=== PATIENT | male | born 1970 | race Caucasian/White ===

== ENCOUNTER 2018-11-04 12:58 | Inpatient (IN) | payer BC ==
[~2018-11-04] VITALS: Ht 182.9 cm; Wt 173.4 kg
[~2018-11-04 12:58] MED LIST: Z.0.ZESTRIL10 MG PO
--- NOTE | 2018-11-04 14:17 | Diagnostic Imaging Report ---
EXAMINATION: CXR 2 VIEW - HOPD INDICATION: Chest tightness, chest pain COMPARISON: None FINDINGS: LINES/TUBES:None LUNGS:The lungs are well-inflated. No focal consolidation or pulmonary edema. PLEURA:No pleural effusion or pneumothorax. MEDIASTINUM:The cardiomediastinal silhouette appears normal in size and shape. BONES/SOFT TISSUES:No acute osseous injury. ABDOMEN:No free air under the diaphragm. IMPRESSION: No focal pneumonia or pulmonary edema. Signed by: Merry Smith MD on 11/04/2018 2:14 PM
[2018-11-04] MEDS ORDERED: ASPIRIN 81 MG CHEW TAB PO ONE (14:45)
[2018-11-04] MEDS ORDERED: ASPIRIN 325 MG TAB PO ONE (14:45)
[2018-11-04] MEDS ORDERED: ONDANSETRON HCL INJ 2MG/ML 2ML 2 MG/ML VIAL IV STA (14:45)
[2018-11-04] MEDS ORDERED: ASPIRIN 325 MG TAB ONE (14:51)
--- OUTSIDE RECORDS SUMMARY | 2018-11-04 15:07 | XMS REPORT ---
Author Author [facility] Address Unknown Phone Unavailable Care Team Providers Care Hide Selector Name Role Phone MONICA PAL Unavailable Unavailable Problems This patient has no known problems. Allergies, Adverse Reactions, Alerts This patient has no known allergies or adverse reactions. Medications This patient has no known medications. Results Test Description Test Time Test Comments Text Results Atomic Results Result Comments CXR 2 VIEW - [facility] 2018-11-04 14:12:00 [facility] [address] [place] [address] Patient Name: LEIGHANN PERDUE MR #: [id number] : 1970 Age/Sex: 48/M Req #: [id number] Adm Physician: Ordered by: MONICA PAL MD Report #: [id number] Location: [facility] Room/Bed: Procedure: [id number] HOPD/CXR 2 VIEW - HOPD Exam Date: 11/04/18 Exam Time: 1405 REPORT STATUS: Signed EXAMINATION: CXR 2 VIEW - HOPD INDICATION: Chest tightness, chest pain COMPARISON: None FINDINGS: LINES/TUBES:None LUNGS:The lungs are well-inflated. No focal consolidation or pulmonary edema. PLEURA:No pleural effusion or pneumothorax. MEDIASTINUM:The cardiomediastinal silhouette appears normal in size and shape. BONES/SOFT TISSUES:No acute osseous injury. ABDOMEN:No free air under the diaphragm. IMPRESSION: No focal pneumonia or pulmonary edema. Signed by: Maicol Smith MD on 11/04/2018 2:14 PM Dictated By: MAICOL SMITH MD 141 Transcribed By: JANN on 11/04/181413 COPY TO: MONICA PAL MD
[2018-11-04 17:09] VITALS: BP 147/103
[2018-11-04 17:15] VITALS: BP 147/103
--- NOTE | 2018-11-04 17:15 | NUR ---
Pt received from ER via stretcher. Alert and oriented x4, on telemetry sinus tachy. Oriented to staff and surroundings. Encouraged to press call evans if help needed. Pt verbalized understanding of teaching. Will monitor
--- NOTE | 2018-11-04 19:00 | NUR ---
Got report from previous nurse. Call light within reach. Patient in bed.
[2018-11-04 19:03] LABS: CREATINE KINASE MB 1.3 ng/mL (0-5.0)
[2018-11-04 20:00] VITALS: BP 165/98
--- NOTE | 2018-11-04 20:35 | NUR ---
Called and talked to Dr. Coelho because patient is having pain and wants Tylenol. Dr. Coelho approved of Tylenol 650 mg.
[2018-11-04] MEDS ORDERED: ACETAMINOPHEN 325 MG TAB PO PRN (20:45)
--- NOTE | 2018-11-04 22:35 | NUR ---
Jorge cardiac markers for the patient and brought it to lab. orthopaedic technologist called saying no orders were in for cardiac markers so to place orders in. Went to check the orders and orders were there but the construction or leak gang laborer did not see the order so had to put in new orders.
--- NOTE | 2018-11-04 22:48 | NUR ---
Cardiology Consult Dictation# [id number]
[2018-11-04 23:02] LABS: CREATINE KINASE MB 2.2 ng/mL (0-5.0)
[2018-11-05] VITALS (9 sets, daily range): BP systolic 118–134; BP diastolic 58–92
--- NOTE | 2018-11-05 01:07 | Consultation ---
DATE OF CONSULTATION: 11/04/2018 Cardiology Consultation REQUESTING PHYSICIAN: Chris Coelho MD. REASON FOR CONSULTATION: Chest pain. HISTORY OF PRESENT ILLNESS: This is a 48-year-old man with history of hypertension, who presents with complaints of diarrhea, vomiting, and chest pain. The patient reports that he had been in his usual state of health until 3 days ago when he began to have diarrhea and vomiting. He was unable to keep food or water down. Starting yesterday, he developed chest pain, which he describes as squeezing, 6/10 in severity. This would last 2 to 3 minutes at a time and occur every few hours. He reports this pain is worse when lying down, but did not radiate and it was not associated with shortness of breath. He denies any edema, orthopnea, PND, or palpitations. He denies any recent travel or surgeries. REVIEW OF SYSTEMS: Negative except as per HPI. PAST MEDICAL HISTORY: 1. Hypertension. 2. Obesity. PAST SURGICAL HISTORY: Right knee surgery. ALLERGIES: PLEASE SEE EMR. MEDICATIONS: Please see medication list. SOCIAL HISTORY: Denies tobacco, alcohol, or illicit drugs. FAMILY HISTORY: Pertinent for sister with unspecified heart disease. PHYSICAL EXAMINATION: VITAL SIGNS: Temperature 99 degrees, pulse 111, respiratory rate 20, blood pressure 147/103, and oxygen saturation 94% on room air. GENERAL: Morbidly obese man, well developed, well nourished, in no acute distress. Awake and alert. HEENT: Normocephalic and atraumatic. Pupils equal. No scleral icterus. NECK: Supple. No thyromegaly or cervical lymphadenopathy. No carotid bruits. LUNGS: Clear to auscultation bilaterally. CARDIOVASCULAR: Normal rate and regular rhythm. No murmur. Normal S1 and S2. ABDOMEN: Soft, nontender. EXTREMITIES: No edema. NEUROLOGIC: Nonfocal exam. LABORATORY DATA: CK 265, CK-MB 1.3, troponin 0.241. EKG, sinus tachycardia, incomplete right bundle-branch block. IMPRESSION: 1. Chest pain. 2. Nausea, vomiting, and diarrhea. 3. Hypertension. RECOMMENDATIONS: Trend cardiac markers to rule out myocardial infarction. Check labs including fasting lipid panel. Obtain echocardiogram. Monitor the patient on telemetry while admitted. Further recommendations pending test results. Continue home antihypertensive therapy. Further evaluation of GI complaints per primary. Thank you for this consult. We will continue to follow. MD MIREYA Trimble/ITALO /[id number]
--- NOTE | 2018-11-05 06:57 | NUR ---
Gave report to oncoming nurse. Call light within reach. Patient in bed.
[2018-11-05 07:22] LABS: BASOPHILS % 0.4 % (0.0-1.0); EOSINOPHILS # (AUTO) 0.1 (0.0-0.4); EOSINOPHILS % 0.6 % (0.0-6.0); HEMATOCRIT 47.9 % (38.2-49.6); HEMOGLOBIN 15.8 g/dL (14.0-18.0); LYMPHOCYTES # (AUTO) 1.7 (1.0-3.2); LYMPHOCYTES % 14.7 % (18.0-39.1); MEAN CORPUSCULAR HEMOGLOBIN 29.8 pg (28-32); MEAN CORPUSCULAR VOLUME 90.2 fL (81-99); MONOCYTES # (AUTO) 1.6 (0.2-0.8); MONOCYTES % 13.9 % (4.4-11.3); NEUTROPHILS # (AUTO) 7.9 (2.1-6.9); PLATELET COUNT 237 x10e3/uL (140-360); RED BLOOD COUNT 5.31 x10e6/uL (4.3-5.7); RED CELL DISTRIBUTION WIDTH 13.1 % (11.7-14.4)
[2018-11-05 07:35] LABS: ALANINE AMINOTRANSFERASE 39 IU/L (0-55); ALBUMIN 3.3 g/dL (3.5-5.0); ALBUMIN/GLOBULIN RATIO 0.8 (0.8-2.0); ALKALINE PHOSPHATASE 64 IU/L (40-150); ANION GAP 16.7 mmol/L (8-16); BLOOD UREA NITROGEN 11 mg/dL (7-26); BUN/CREATININE RATIO 10 (6-25); CALCIUM 8.9 mg/dL (8.4-10.2); CARBON DIOXIDE 21 mmol/L (22-29); CHLORIDE 103 mmol/L (98-107); CREATININE, SERUM 1.06 mg/dL (0.72-1.25); EST GLOMERULAR FILTRATION RATE > 60 ML/MIN (60-); GLUCOSE 111 mg/dL (74-118); MAGNESIUM 2.5 MG/DL (1.3-2.1); POTASSIUM 3.7 mmol/L (3.5-5.1); SODIUM 137 mmol/L (136-145)
[2018-11-05 07:49] LABS: CHOL/HDL RATIO 3.3 (3.9-4.7)
[2018-11-05 08:01] LABS: CREATINE KINASE MB 5.7 ng/mL (0-5.0)
[2018-11-05] MEDS: ASPIRIN 325 MG TAB EC PO SCH (09:13)
[2018-11-05] MEDS: METOPROLOL TARTRATE 25 MG TAB PO SCH ×2 (09:14→17:20)
[2018-11-05 11:57] LABS: LYMPHOCYTES % (MANUAL) 13 % (19-48); MONOCYTES % (MANUAL) 14 % (3.4-9.0); NEUTROPHILS % (MANUAL) 73 % (40-74); PLATELET ESTIMATE ADEQUATE; PLATELET MORPHOLOGY COMMENT NORMAL; RBC MORPHOLOGY COMMENT NORMAL
[2018-11-05] MEDS ORDERED: ONDANSETRON HCL INJ 2MG/ML 2ML 2 MG/ML VIAL IV PRN (12:30)
[2018-11-05] MEDS ORDERED: LOPERAMIDE HCL 2 MG CAP PO PRN (12:30)
[2018-11-05 15:43] LABS: CREATINE KINASE MB 3.8 ng/mL (0-5.0)
[2018-11-05] MEDS ORDERED: HEPARIN 25,000 UNIT DRIP IV ONE (18:20)
[2018-11-05] MEDS: HEPARIN 25,000 UNIT 1,000 UNIT in DEXTROSE 5% 250ML 250 ML IV SCH (18:24)
[2018-11-05] MEDS ORDERED: HEPARIN SOD (PORCINE) 5,000 UNIT/ML VIAL IV ONE (18:30)
--- NOTE | 2018-11-05 18:36 | NUR ---
heparin drip started at 1000u/hr with 4000u bolus given.
--- NOTE | 2018-11-05 18:55 | NUR ---
RECEIVED REPORT FROM PREVIOUS NURSE. CALL LIGHT WITHIN REACH. PATIENT IN BED.
--- NOTE | 2018-11-05 20:15 | Progress Note ---
DATE: 11/05/2018 Cardiology Progress Note SUBJECTIVE: No major events overnight. No more chest pain. OBJECTIVE: VITAL SIGNS: Temperature afebrile, pulse 86, respiratory rate 18, blood pressure 129/83, saturating 95% on room air. GENERAL: Obese man, in no acute distress. CARDIOVASCULAR: Regular rate and rhythm. No murmurs, rubs, or gallops. LUNGS: Clear to auscultation bilaterally. ABDOMEN: Soft, nontender, nondistended. NEURO AND PSYCH: Alert and oriented to person, place, and time. Normal affect. INPATIENT MEDICATIONS: Reviewed. LABORATORY DATA: Reviewed. TELEMETRY DATA: Reviewed, shows normal sinus rhythm. Echocardiogram reviewed. Normal LV function. ASSESSMENT AND PLAN: Mxk-FB-kwarmgakt myocardial infarction. PLAN: Plan for coronary angiography on Wednesday. Continue full-dose anticoagulation and aspirin in the meantime. Thank you for this consult. We will continue to follow. MD ZAIRA Jackson/ITALO /[id number]
[2018-11-06] VITALS (7 sets, daily range): BP systolic 111–128; BP diastolic 70–91
--- NOTE | 2018-11-06 01:56 | NUR ---
AT 0100 HAM PTT AND TOOK IT TO LAB, WAITING FOR THE RESULTS.
--- NOTE | 2018-11-06 02:00 | NUR ---
Received PTT result and it was 33.1 so increased the rate to 12 mls/hr or 200 units/hr as per protocol.
--- NOTE | 2018-11-06 07:05 | NUR ---
Patient resting in bed, side rails upx2, call light within reach. AAOX4 to time, person, place, situation. Respirations even and unlabored. Heparin drip 12ml/hr via right hand IV. Instructed patient to use call light for assistance. Voiced understanding.
--- NOTE | 2018-11-06 07:10 | NUR ---
GAVE REPORT TO ONCOMING NURSE. CALL LIGHT WITHIN REACH. PATIENT IN BED.
--- NOTE | 2018-11-06 07:20 | NUR ---
Patient does not have yellow socks on. Educated on fall risk precautions. Patient voiced understanding and remains refusing to wear yellow socks.
--- NOTE | 2018-11-06 07:55 | NUR ---
PTT 38.6 Heparin drip increased by 200 units/hr per protocol (14ml/hr)
[2018-11-06] MEDS ORDERED: LOSARTAN POTASS50 MG PO (07:57)
[2018-11-06] MEDS: ASPIRIN 325 MG TAB EC PO SCH (07:58)
[2018-11-06] MEDS: METOPROLOL TARTRATE 25 MG TAB PO SCH ×2 (07:59→15:53)
--- NOTE | 2018-11-06 10:38 | NUR ---
Educated again on fall risk precautions. Patient remains refusing to wear yellow socks.
--- NOTE | 2018-11-06 15:10 | NUR ---
PTT 39. Heparin increased 200units/hr (16mls/hr).
[2018-11-06] MEDS: HEPARIN 25,000 UNIT 1,000 UNIT in DEXTROSE 5% 250ML 250 ML IV SCH (15:53)
--- NOTE | 2018-11-06 18:50 | NUR ---
Received report from previous nurse. Patient in bed. Call light within reach. Father at bedside
--- NOTE | 2018-11-06 19:02 | NUR ---
Report given to oncoming nurse of patient's status. Resting in bed, side rails upx2, call light within reach, father at bedside. Heparin 16ml/hr via right hand IV. No /s of acute distress noted.
--- NOTE | 2018-11-06 21:50 | Progress Note ---
DATE: 11/06/2018 Cardiology Progress Note SUBJECTIVE: No major events overnight. No more chest pain. OBJECTIVE: VITAL SIGNS: Temperature afebrile, pulse 86, respiratory rate 20, blood pressure 125/76, saturating 97% on room air. GENERAL: Obese white man, in no acute distress. CARDIOVASCULAR: Regular rate and rhythm. No murmurs, rubs, or gallops. LUNGS: Clear to auscultation bilaterally. ABDOMEN: Soft, nontender and nondistended. NEURO AND PSYCH: Alert and oriented to person, place, and time. Normal affect. INPATIENT MEDICATIONS: Reviewed. LABORATORY DATA: Reviewed. TELEMETRY DATA: Reviewed. Normal sinus rhythm. ASSESSMENT: Ibx-XZ-hxzcrpgye myocardial infarction. PLAN: Coronary angiography tomorrow. Continue IV heparin, aspirin, and high-intensity statin. Thank you for this consult. We will continue to follow. MD ZAIRA Jackson/ITALO /[id number]
--- NOTE | 2018-11-06 22:30 | NUR ---
Patient PTT came back 37.7 so increased heparin by 200 so it is running at 18 ml/hr. Addendum: 11/06/18 at 2247 by Kym Valdes RN 200 units/hr
[2018-11-07] VITALS (7 sets, daily range): BP systolic 105–137; BP diastolic 73–81
--- NOTE | 2018-11-07 06:00 | NUR ---
Received PTT results which is 54.8 so we do not change the rate or dosage.
--- NOTE | 2018-11-07 07:00 | NUR ---
BEDSIDE SHIFT REPORT RECEIVED FROM NIGHT RN. PT DENIES NEEDS AT THIS TIME.
--- NOTE | 2018-11-07 07:10 | NUR ---
Gave report to oncoming nurse. Call light within reach. patient in bed.
[2018-11-07] MEDS: HEPARIN 25,000 UNIT 1,000 UNIT in DEXTROSE 5% 250ML 250 ML IV SCH (07:33)
[2018-11-07] MEDS ORDERED: LOSARTAN POTASSIUM 25 MG TAB PO SCH (09:00)
[2018-11-07] MEDS: ASPIRIN 325 MG TAB EC PO SCH (09:58)
[2018-11-07] MEDS: METOPROLOL TARTRATE 25 MG TAB PO SCH ×2 (09:58→17:24)
--- NOTE | 2018-11-07 20:30 | Progress Note ---
DATE: 11/07/2018 Cardiology Progress Note SUBJECTIVE: No major events overnight. OBJECTIVE: VITAL SIGNS: Temperature afebrile, pulse 77, respiratory rate 20, blood pressure 109/70, and saturating 96%. GENERAL: Obese man, in no acute distress. CARDIOVASCULAR: Regular rate and rhythm. No murmurs, rubs, or gallops. LUNGS: Clear to auscultation bilaterally. ABDOMEN: Soft, nontender, and nondistended. NEURO AND PSYCH: Alert and oriented to person, place, and time. Normal affect. INPATIENT MEDICATIONS: Reviewed. LABORATORY DATA: Reviewed. TELEMETRY DATA: Reviewed. IMAGING DATA: Reviewed. ASSESSMENT: Non-ST elevation myocardial infarction. PLAN: Coronary angiography tomorrow. Continue IV heparin, aspirin and high-intensity statin. Thank you for this consult. We will continue to follow. MD ZAIRA Jackson/ITALO /[id number]
[2018-11-08] VITALS (15 sets, daily range): BP systolic 113–174; BP diastolic 65–87
[2018-11-08] MEDS ORDERED: LIDOCAINE HCL 2% LOCAL 20 ML VIAL ONE (06:53)
[2018-11-08] MEDS ORDERED: HEPARIN SOD/SOD CHLORIDE 1,000 ML ONE (06:53)
[2018-11-08] MEDS ORDERED: HEPARIN SOD (PORCINE) 1000 UNIT/ML 30ML ONE (06:53)
[2018-11-08] MEDS ORDERED: IOPAMIDOL 370 MG/ML 200 ML INFUS..BTL INJ ONE (06:54)
[2018-11-08] MEDS ORDERED: NITROGLYCERIN/D5W 200 MCG/ML 250 ML ONE (06:55)
[2018-11-08] MEDS ORDERED: VERAPAMIL HCL 2.5 MG/ML 2 ML VIAL ONE (06:57)
[2018-11-08] MEDS ORDERED: MIDAZOLAM HCL 2 MG/2 ML VIAL ONE ×2 (06:57→07:45)
[2018-11-08] MEDS ORDERED: SODIUM CHLORIDE 0.9% 1000ML 1,000 ML ONE (06:58)
[2018-11-08] MEDS ORDERED: FENTANYL CITRATE/PF 100MCG/2 ML INJ ONE (06:58)
--- NOTE | 2018-11-08 07:00 | NUR ---
BEDSIDE SHIFT REPORT RECEIVED FROM NIGHT RN. PT DENIES NEEDS AT THIS TIME.
--- NOTE | 2018-11-08 07:05 | NUR ---
PT OFF THE FLOOR TO IRRIGATION INSTALLATION SPECIALIST.
--- NOTE | 2018-11-08 08:30 | NUR ---
0830ADIAL Compression removal: Initial Cuff volume 10 cc 8am (-2cc )by Jose Santiago,Removed No hematoma/bleeding noted with normal neurovascular function. 9am (-2 cc )Removed No hematoma/ bleeding noted with normal neurovascular function. 0915(-2 cc )Removed No hematoma/bleeding noted with normal neurovascular function. 0930(-2 cc )Removed No hematoma/ bleeding noted with normal neurovascular function. Air removal completed. 0930am and prepared for transport back to floor care Rm #[id number] Noel Santiago Stasis achieved sterile 2x2,Tegaderm, Coban dressing No hematoma, bleeding noted with normal neurovascular function. Wrist splint in place. Pt instructed on POC. Ds/Rn
--- NOTE | 2018-11-08 08:30 | NUR ---
0830am Bedside report received from DARBY Garcia.Identiferx2. Alert oriented and appropriate, PERRLA, respirations even and unlabored to room air. Pulses x4 extremities equal and strong. Pedal pulses PT/DP x4.Cap fill brisk < 3 sec. Skin warm and dry integrity appears D/I. IV 20g to rt hand 100cchr presents healthy w/o s/s of infiltration or complaint. Abdomen soft and supple. pt offered toileting, denies need to urinate or defecate. No personal affects with patient. No Family at bedside. Pt verbalizes understanding of POC. TRband care teaching tool completed and diagram given to pt. Md at bedside and pt will dc today.No gross issues pain,pallor,pressure or dysrhythmia. Currently w/o complaint of pain or need. ds/darby
--- NOTE | 2018-11-08 09:15 | NUR ---
PT BACK TO THE FLOOR FROM LABOR SERVICE REPRESENTATIVE. VITALS WNL, FAMILY AT BEDSIDE, PT DENIES NEEDS AT THIS TIME.
--- NOTE | 2018-11-08 09:30 | NUR ---
0914e Handoff report phoned to Seven Rn aware to has Rt TR band wrist splint in place w/o s/s hematoma or oozing Normal neuro muscular function aware for dc today. 0999 Transported to floor care with tel back in place and escorted per RN and CALL OUT OPERATOR escort via,No gross issues pain,pallor,pressure or dysrhythmia. ds/rn
--- NOTE | 2018-11-08 09:30 | NUR ---
PT CLEARED BY DR. EVANS FOR DISCHARGE HOME TO FOLLOW UP IN 2 WEEKS.
--- NOTE | 2018-11-08 09:33 | Progress Note ---
DATE: 11/08/2018 Cardiology Progress Note CHIEF COMPLAINT: Chest pain. SUBJECTIVE: Mr. Ross has had no further chest pain overnight. His cardiac enzymes are stable. PHYSICAL EXAMINATION: VITAL SIGNS: Afebrile, heart rate 80, blood pressure 123/65, and O2 saturation 97%. CARDIOVASCULAR: Regular rhythm. No murmurs, S4 gallop. LUNGS: Clear to auscultation bilaterally. Pedal pulses are 2+, 1+ edema. LABORATORY DATA: His cardiac troponin peak 1.12. LDL 71. ASSESSMENT: Vax-NW-oymerkl elevation myocardial infarction. RECOMMENDATION: Mr. Ross underwent angiography today. He has no angiographic coronary artery disease. His echocardiogram shows an ejection fraction of 70%. The patient is stable for discharge from the cardiac perspective with close followup in the office in [address] Coelho for this consultation. MD VALERIA Rendon/ITALO /[id number]
--- NOTE | 2018-11-08 12:03 | Operative Report ---
DATE OF PROCEDURE: 11/08/2018 SURGEON: Dominic Patel MD CARDIAC QUALITY MANAGEMENT COORDINATOR PROCEDURE NOTE INDICATION: Coronary and non-ST segment elevation myocardial infarction. PROCEDURES PERFORMED: 1. Left heart catheterization, selective coronary angiography. 2. Deployment of right wrist TR band. COMPLICATIONS: None. RECOMMENDATIONS: Medical therapy. DESCRIPTION OF PROCEDURE: Access obtained in the right radial artery. A 5-Austrian sheath was placed. Diagnostic coronary angiogram revealed no evidence of angiographic coronary artery disease. Excellent flow in all vessels. No critical stenosis or occlusions were noted. LV end-diastolic pressure of 14. No gradient across the aortic valve on pullback. Right wrist sheath and guide removed. TR band applied. The patient discharged home same day. Dominic Patel MD KSB/MODL /[id number]
--- NOTE | 2018-11-19 05:32 | Discharge Summary ---
DISCHARGE DIAGNOSES: 1. Non-ST segment elevation myocardial infarction. 2. Hypertension. 3. Obesity. HISTORY OF PRESENT ILLNESS AND HOSPITAL COURSE: See hospital chart for full details. The patient is a gentleman who presents with hypertensive urgency. He was placed on antihypertensive medications with significant improvement of his hypertension, but seen by Cardiology, who then performed a heart cath that showed nonobstructive disease, so patient was then therefore able to be discharged home with his blood pressure medicines that were working well. He will be followed up with his PCP in 1 to 2 weeks as well as Cardiology in 1 to 2 weeks. Please see hospital chart for full details. MD TERRA Liriano/ITALO /[id number]
== END 2018-11-08 12:15 | disposition home or self-care (01) | DRG 281 ==
LOC: FSED 12:58 → ERHOLD 14:42 → IMCU 16:57 → OBSVTOIN 11-06 08:59
PROVIDERS: ADMIT Internal Medicine; ATTEND Internal Medicine
PROC: 4A023N7 Measurement of Cardiac Sampling and Pressure, Left Heart, Percutaneous Approach (ICD-10-PCS; principal; 2018-11-08)
PROC: B2111ZZ Fluoroscopy of Multiple Coronary Arteries using Low Osmolar Contrast (ICD-10-PCS; 2018-11-08)
PROC: B2151ZZ Fluoroscopy of Left Heart using Low Osmolar Contrast (ICD-10-PCS; 2018-11-08)
DX: I21.4 Non-ST elevation (NSTEMI) myocardial infarction (principal); Z68.43 Body mass index [BMI] 50.0-59.9, adult; I10 Essential (primary) hypertension; E66.01 Morbid (severe) obesity due to excess calories
CPT/HCPCS: 36415; 71046; 80048; 80053; 80061; 80076; 81003; 82550; 82553; 83735; 83880; 84484; 85025; 85610; 85730; 93005; 93306; 93458; 99284; C1769; C1887; G0378; J1644; J2001; J2250; J2405; J3010; J7030; Q9967

== ENCOUNTER 2022-09-22 10:53 | Observation (INO) | payer BC ==
[~2022-09-22] VITALS: Ht 180.3 cm; Wt 187.8 kg
[~2022-09-22 10:53] MED LIST changes: +LOSARTAN POTASS50 MG PO
[2022-09-22] MEDS ORDERED: ASPIRIN 81 MG CHEW TAB PO ONE ×2 (11:15→14:30)
[2022-09-22] MEDS ORDERED: SODIUM CHLORIDE FLUSH 10 ML SYR IV PRN (11:15)
[2022-09-22] MEDS ORDERED: NITROGLYCERIN 0.4 MG SUBL SL PRN ×2 (11:15→14:30)
[2022-09-22] MEDS ORDERED: FENTANYL CITRATE/PF 100MCG/2 ML INJ IV ONE (11:15)
[2022-09-22] MEDS ORDERED: NITROGLYCERIN 2% OINT 1 GM PKT TOP ONE (11:15)
[2022-09-22] MEDS ORDERED: ENALAPRILAT IV INJ 1.25 MG/ML VIAL IV STA (11:17)
[2022-09-22 11:21] LABS: BASOPHILS # (AUTO) 0.1 (0.0-0.1); BASOPHILS % 0.5 % (0.0-1.0); EOSINOPHILS # (AUTO) 0.4 (0.0-0.4); EOSINOPHILS % 3.2 % (0.0-6.0); HEMATOCRIT 48.9 % (38.2-49.6); HEMOGLOBIN 16.5 g/dL (14.0-18.0); LYMPHOCYTES # (AUTO) 2.2 (1.0-3.2); LYMPHOCYTES % 20.3 % (18.0-39.1); MEAN CORPUSCULAR HEMOGLOBIN 29.8 pg (28-32); MEAN CORPUSCULAR HGB CONC 33.7 g/dL (31-35); MEAN CORPUSCULAR VOLUME 88.3 fL (81-99); MONOCYTES # (AUTO) 0.8 (0.2-0.8); MONOCYTES % 7.4 % (4.4-11.3); NEUTROPHILS # (AUTO) 7.5 (2.1-6.9); NEUTROPHILS % 68.1 % (38.7-80.0); PLATELET COUNT 310 x10e3/uL (140-360); RED BLOOD COUNT 5.54 x10e6/uL (4.3-5.7); RED CELL DISTRIBUTION WIDTH 12.8 % (11.7-14.4)
[2022-09-22 11:44] LABS: ALBUMIN 3.6 g/dL (3.5-5.0); ALBUMIN/GLOBULIN RATIO 0.8 (0.8-2.0); ANION GAP 14.4 mmol/L (8-16); CALCIUM 9.3 mg/dL (8.4-10.2); CREATININE, SERUM 1.13 mg/dL (0.72-1.25); POTASSIUM 3.4 mmol/L (3.5-5.1)
[2022-09-22] MEDS ORDERED: SODIUM CHLORIDE FLUSH 10 ML SYR INJ PRN (14:30)
[2022-09-22] MEDS: ENOXAPARIN SODIUM INJ 100 MG/ML SYR SC SCH ×2 (15:35→21:00)
[2022-09-22 16:27] VITALS: BP 137/102; PULSE 105; RESP 20; TEMP 97.2; O2SAT 97
[2022-09-22 16:41] VITALS: PULSE 99; RESP 16; O2SAT 98
[2022-09-22] MEDS ORDERED: HYDRALAZINE HCL 20 MG/ML VIAL IV STA (16:52)
[2022-09-22] MEDS ORDERED: HYDRALAZINE HCL 20 MG/ML VIAL IV PRN (17:00)
[2022-09-22] MEDS ORDERED: NITROGLYCERIN 2% OINT 1 GM PKT TOP SCH (18:00)
[2022-09-22] MEDS ORDERED: METOPROLOL TARTRATE 25 MG TAB PO ONE (19:30)
[2022-09-22 19:55] VITALS: PULSE 100; RESP 18; O2SAT 97
[2022-09-22 20:18] VITALS: BP 125/70; PULSE 92; RESP 18; TEMP 97.4; O2SAT 97
[2022-09-22 21:00] VITALS: BP 125/70; PULSE 92; RESP 18; TEMP 97.4; O2SAT 97
[2022-09-22 23:30] VITALS: BP 151/92; PULSE 73; RESP 18; TEMP 97.4; O2SAT 98
[2022-09-23 04:44] VITALS: BP 148/97; PULSE 75; RESP 18; TEMP 97.5; O2SAT 96
[2022-09-23 05:58] LABS: BASOPHILS # (AUTO) 0.1 (0.0-0.1); BASOPHILS % 0.5 % (0.0-1.0); EOSINOPHILS # (AUTO) 0.3 (0.0-0.4); HEMATOCRIT 45.6 % (38.2-49.6); HEMOGLOBIN 15.3 g/dL (14.0-18.0); LYMPHOCYTES # (AUTO) 1.8 (1.0-3.2); LYMPHOCYTES % 17.8 % (18.0-39.1); MEAN CORPUSCULAR HEMOGLOBIN 29.8 pg (28-32); MEAN CORPUSCULAR HGB CONC 33.6 g/dL (31-35); MEAN CORPUSCULAR VOLUME 88.7 fL (81-99); MONOCYTES # (AUTO) 0.8 (0.2-0.8); MONOCYTES % 7.6 % (4.4-11.3); NEUTROPHILS # (AUTO) 7.1 (2.1-6.9); NEUTROPHILS % 70.7 % (38.7-80.0); PLATELET COUNT 282 x10e3/uL (140-360); RED BLOOD COUNT 5.14 x10e6/uL (4.3-5.7)
[2022-09-23 06:23] LABS: ANION GAP 14.7 mmol/L (8-16); CALCIUM 8.9 mg/dL (8.4-10.2); CREATININE, SERUM 1.03 mg/dL (0.72-1.25); POTASSIUM 3.7 mmol/L (3.5-5.1)
[2022-09-23 06:57] LABS: CHOL/HDL RATIO 3.6 (3.9-4.7)
[2022-09-23 08:54] VITALS: BP 140/107; PULSE 85; RESP 19; TEMP 97.7; O2SAT 98
[2022-09-23] MEDS ORDERED: LOSARTAN POTASSIUM 25 MG TAB PO SCH (09:00)
[2022-09-23] MEDS ORDERED: NON-FORMULARY MEDICATION (Losartan Potassium 50 MG) PO SCH (09:00)
[2022-09-23] MEDS ORDERED: METOPROLOL TARTRATE 25 MG TAB PO SCH (09:00)
[2022-09-23] MEDS: ASPIRIN 81 MG ENTERIC COATED PO SCH (09:05)
[2022-09-23] MEDS: ENOXAPARIN SODIUM INJ 100 MG/ML SYR SC SCH ×2 (09:06→21:06)
[2022-09-23] MEDS: LOSARTAN POTASSIUM 100 MG TAB PO SCH (09:07)
[2022-09-23 09:30] VITALS: BP 140/110; PULSE 85; RESP 19; TEMP 97.7; O2SAT 98
[2022-09-23] MEDS ORDERED: CARVEDILOL 12.5 MG TAB PO ONE (11:15)
[2022-09-23 11:56] VITALS: BP 143/100; PULSE 95; RESP 18; TEMP 98; O2SAT 98
[2022-09-23 16:37] VITALS: BP 134/76; PULSE 87; RESP 18; TEMP 97.6; O2SAT 98
[2022-09-23] MEDS: CARVEDILOL 12.5 MG TAB PO SCH (17:21)
[2022-09-23 20:00] VITALS: BP 120/72; PULSE 83; RESP 18; TEMP 97.8; O2SAT 97
[2022-09-24] VITALS (19 sets, daily range): BP systolic 135–172; BP diastolic 80–107; PULSE 73–81; RESP 12–22; TEMP 97.7–98.3; O2SAT 9–99
[2022-09-24] MEDS ORDERED: HEPARIN SOD (PORCINE) 1000 UNIT/ML 30ML ONE (09:24)
[2022-09-24] MEDS ORDERED: LIDOCAINE HCL 2% LOCAL 20 ML VIAL ONE (09:24)
[2022-09-24] MEDS ORDERED: HEPARIN SOD/SOD CHLORIDE 2,000 ML ONE (09:24)
[2022-09-24] MEDS ORDERED: IOPAMIDOL 370 MG/ML 100 ML INFUS..BTL INJ ONE (09:25)
[2022-09-24] MEDS ORDERED: NITROGLYCERIN/D5W 200 MCG/ML 250 ML ONE (09:25)
[2022-09-24] MEDS ORDERED: SODIUM CHLORIDE 0.9% 1000ML 1,000 ML ONE (09:25)
[2022-09-24] MEDS ORDERED: MIDAZOLAM HCL 2 MG/2 ML VIAL ONE (09:40)
[2022-09-24] MEDS ORDERED: FENTANYL CITRATE/PF 100MCG/2 ML INJ ONE (09:41)
[2022-09-24] MEDS: LOSARTAN POTASSIUM 100 MG TAB PO SCH (13:35)
[2022-09-24] MEDS: CARVEDILOL 12.5 MG TAB PO SCH (13:36)
[2022-09-24] MEDS: ASPIRIN 81 MG ENTERIC COATED PO SCH (13:36)
== END 2022-09-24 17:50 | disposition home or self-care (01) ==
LOC: ER 11:05 → ERHOLD 14:18 → MED/SURG3 15:39
PROVIDERS: ADMIT Internal Medicine; ATTEND Internal Medicine
DX: R07.89 Other chest pain (principal); I16.9 Hypertensive crisis, unspecified; E66.9 Obesity, unspecified; Z68.43 Body mass index [BMI] 50.0-59.9, adult; E78.5 Hyperlipidemia, unspecified; R73.9 Hyperglycemia, unspecified
CPT/HCPCS: 36415 ×2; 71045; 80048; 80053; 80061; 82550 ×2; 83036; 84484 ×2; 85025 ×2; 93005; 93306; 93458; 94760; 94799; 99284; C1887; G0378 ×3; J0360 ×2; J1644; J1650 ×3; J2001; J2250; J3010 ×2; J7030; Q9967; U0002; 99152